=== PATIENT | male | born 2000 | race Native Hawaiian/Other Pacific Islander ===

== ENCOUNTER 2022-12-20 00:47 | Emergency (ER) | payer OTHER, SELFPAY ==
[2022-12-20 00:56] VITALS: BP 152/89; PULSE 69; RESP 18; TEMP 36.6; O2SAT 97; BMI 36.9
--- NOTE | 2022-12-20 01:02 | XRR_ITS ---
PROCEDURE INFORMATION: Exam: XR Left Foot Exam date and time: 12/20/2022 1:09 AM Age: 22 years old Clinical indication: Injury or trauma; Fall; Sprain or strain; Foot; Left TECHNIQUE: Imaging protocol: Radiologic exam of the left foot. Views: 3 or more views. COMPARISON: CR (LOW EXM, ) 12/20/2022 1:07 AM FINDINGS: Bones/joints: Normal. No acute fracture. Accessory navicular bone. Soft tissues: Normal. XR/XR foot LT min 3V* [id number] IMPRESSION: No acute findings.
--- NOTE | 2022-12-20 01:02 | XRR_ITS ---
PROCEDURE INFORMATION: Exam: XR Left Ankle Exam date and time: 12/20/2022 1:07 AM Age: 22 years old Clinical indication: Injury or trauma; Fall; Sprain or strain; Ankle; Left TECHNIQUE: Imaging protocol: Radiologic exam of the left ankle. Views: 3 or more views. COMPARISON: No relevant prior studies available. FINDINGS: Bones/joints: Normal. No acute fracture. Soft tissues: Normal. XR/XR ankle LT min 3V* [id number] IMPRESSION: No acute findings.
--- NOTE | 2022-12-20 01:02 | W.ED.EXTPRO ---
HPI - Extremity Problem General: Chief complaint: Extremity Injury, Lower Stated complaint: ankle injury Time Seen by Provider: 12/20/22 00:50 Source: patient Mode of arrival: ambulatory Limitations: no limitations History of Present Illness: 22-year-old male states that he is at work he had bent to pick some things on the ground and rolled his ankle. This happened an hour ago states that his ankle hurts over the medial aspect along with some slight pain to the medial aspect of his foot he has been ambulatory denies any knee pain he rates his pain a 3 out of 10. Associated symptoms: Deny chest pain, fever(s) or rash Review of Systems Const: Denies: fever(s), chills, body aches or change in appetite Eyes: Denies: blurry vision or eye discomfort ENMT: Denies: throat pain or dental pain Card: Denies: chest pain Resp: Denies: dyspnea GI: Denies: abdominal pain, nausea, vomiting or diarrhea Musc: Reports: extremity pain; Denies: neck pain or back pain Skin/Breast: Denies: rash Neuro: Denies: headache(s) Physical Exam Const: COMMON NORMALS: no acute distress and patient oriented x3 HENMT: COMMON NORMALS: normocephalic and atraumatic HEAD & SCALP: normocephalic and atraumatic Chest: COMMONS NORMALS: normal inspection of the chest Resp: COMMON NORMALS: normal respiratory effort Cardio: COMMON NORMALS: regular rate and regular rhythm RATE: regular rate RHYTHM: regular rhythm GI: INSPECTION: Yes normal to inspection Extremity: COMMON NORMALS: normal to inspection NARRATIVE EXTREMITY EXAM: Slight tenderness over medial aspect of ankle and foot of the left no deformity noted Achilles tendons intact Neuro: COMMON NORMALS: patient oriented x3 Psych: COMMON NORMALS: mental status grossly normal Skin: COMMON NORMALS: no rashes or lesions noted GENERAL SKIN EXAM: no rashes or lesions noted Course Vital Signs: Vital signs: Vital Signs Temperature 97.8 F 12/20/22 00:56 Pulse Rate 69 12/20/22 00:56 Respiratory Rate 18 12/20/22 00:56 Blood Pressure 152/89 12/20/22 00:56 Pulse Oximetry 97 12/20/22 00:56 Oxygen Delivery Me thod Room Air 12/20/22 00:56 MDM - Extremity (Nontraumatic) Medical Decision Making Patient presents here with a ankle sprain x-ray shows no fracture he is well-appearing here place an Francis wrap he is to ice he is to follow-up with PCP he is stable for discharge Imaging Data xr left foot: I personally reviewed and interpreted this imaging study as follows: My impression: no acute abnormality xr l ankle : I personally reviewed and interpreted this imaging study as follows: My impression: no acute abnormality Discharge Plan Discharge Patient Disposition: Home Clinical Impression: Ankle sprain and strain Condition: Stable Prescriptions: New Naprosyn 500 mg tablet 500 mg PO BID PRN (Reason: pain) Qty: 20 0RF Discharge Orders: Discharge ED (Routine); Ordered 12/20/22 Ordered By: Vivian Das Discharge Diet: Advance as tolerated Discharge Activity: Resume usual activity Patient Instructions: Ankle Sprain (ED) Coding Level of Care Code ED [employer] Par[employer]egal for Luca Carlson
[2022-12-20] MEDS: naproxen 500 mg Tablet PO (01:07)
== END 2022-12-20 01:26 | disposition home or self-care (01) ==
PROVIDERS: Emergency Provider Emergency Medicine
DX: S93.402A Sprain of unspecified ligament of left ankle, initial encounter (principal); S96.912A Strain of unspecified muscle and tendon at ankle and foot level, left foot, initial encounter; X50.1XXA Overexertion from prolonged static or awkward postures, initial encounter
CPT/HCPCS: 73610; 73630; 99283